=== PATIENT | male | born 1950 | race Caucasian/White ===

== ENCOUNTER 2016-07-10 14:47 | Emergency (ER) | payer SELFPAY ==
[~2016-07-10] VITALS: Ht 188 cm; Wt 86.2 kg
[~2016-07-10 14:47] MED LIST: ATENOLOL25 MG PO; CAR60 PO; DEXTROMETHORPHAN PO; ECO81 PO; FLO4 PO; HYDROCHLOROTH12.5 M2 PO; HYDROCHLOROTHIA25 MG; LAC PO; LEVAQUIN750 MG PO; MEDDP PO; NIC21 TD; PERCOCET1 TA2 PO; TEN50 PO; TENORMIN50 MG PO; ZESTRIL20 MG
[2016-07-10 15:49] LABS: BASOPHIL % 0.6 % (0-2); PLATELET COUNT 188 x10^3mcL (130-400); RED CELL DISTRIBUTION WIDTH 14.1 % (11.5-14.5)
[2016-07-10 16:02] LABS: CALCIUM 8.7 mg/dL (8.5-10.1); CARBON DIOXIDE 25.8 mmol/L (21-32); CHLORIDE SERUM 106 mmol/L (98-107); CREATININE SERUM 1.2 mg/dL (0.7-1.3); GFR1 > 60 mL/min; GLUCOSE SERUM 93 mg/dL (74-106); POTASSIUM SERUM 4.5 mmol/L (3.5-5.1); SODIUM SERUM 140 mmol/L (136-145)
[2016-07-10 16:07] LABS: ALBUMIN 3.5 g/dL (3.4-5.0); ALKALINE PHOSPHATASE 112 U/L (46-116); ALT/SGPT 37 U/L (16-63); AST/SGOT 34 U/L (15-37); BILIRUBIN TOTAL 0.4 mg/dL (0.20-1.00); TOTAL PROTEIN, SERUM 7.1 g/dL (6.4-8.2)
[2016-07-10 18:47] LABS: FREE T4 0.95 ng/dL (0.76-1.46); FREE THYROXINE INDEX 2.4 ug/dL (1.4-4.5); T4(THYROXINE) 6.6 ug/dL (4.7-13.3)
[2016-07-10 19:12] LABS: T3 TOTAL 0.77 ng/mL
[2016-07-10 19:51] LABS: AMYLASE 50 U/L (25-115); CHOLESTEROL 201 mg/dL (<200); CHOLESTEROL/HDL RATIO 2.1; HDL CHOLESTEROL 96 mg/dL (40-60); LIPASE 115 IU/L (73-393); TRIGLYCERIDES 85 mg/dL (<150)
[2016-07-10 21:14] VITALS: BP 108/70
== END 2016-07-10 21:14 | disposition left against medical advice (07) ==
LOC: ED 14:47
PROVIDERS: Family Medicine
DX: I48.91 Unspecified atrial fibrillation (principal); I10 Essential (primary) hypertension; N40.0 Benign prostatic hyperplasia without lower urinary tract symptoms; J44.9 Chronic obstructive pulmonary disease, unspecified
CPT/HCPCS: 80307; 83880; 84439; G0480; J2270; J2405; J3490

== ENCOUNTER 2016-07-15 12:31 | Inpatient (IN) | payer MEDICAID ==
[~2016-07-15] VITALS: Ht 188 cm; Wt 86.6 kg
[2016-07-15 13:30] LABS: BASOPHIL % 0.2 % (0-2); PLATELET COUNT 169 x10^3mcL (130-400)
[2016-07-15 13:34] LABS: RED CELL DISTRIBUTION WIDTH 14.8 % (11.5-14.5)
[2016-07-15 13:41] LABS: CALCIUM 8.6 mg/dL (8.5-10.1); CARBON DIOXIDE 29.3 mmol/L (21-32); CHLORIDE SERUM 106 mmol/L (98-107); CREATININE SERUM 1.1 mg/dL (0.7-1.3); GFR1 > 60 mL/min; GLUCOSE SERUM 170 mg/dL (74-106); POTASSIUM SERUM 4.1 mmol/L (3.5-5.1); SODIUM SERUM 142 mmol/L (136-145)
[2016-07-15 13:53] LABS: ALKALINE PHOSPHATASE 103 U/L (46-116); ALT/SGPT 36 U/L (16-63); AMYLASE 46 U/L (25-115); AST/SGOT 20 U/L (15-37); BILIRUBIN TOTAL 0.6 mg/dL (0.20-1.00); CHOLESTEROL 169 mg/dL (<200); LIPASE 116 IU/L (73-393); MAGNESIUM 1.8 mg/dL (1.8-2.4); T4(THYROXINE) 4.9 ug/dL (4.7-13.3); TOTAL PROTEIN, SERUM 6.6 g/dL (6.4-8.2)
[2016-07-15 13:54] LABS: ALBUMIN 3.3 g/dL (3.4-5.0); HDL CHOLESTEROL 93 mg/dL (40-60)
[2016-07-15 14:22] LABS: microscopic required? NO
[2016-07-15 14:32] LABS: UA SPECIFIC GRAVITY 1.025 (1.005-1.035); urine erythrocyte NEGATIVE (NEGATIVE)
[2016-07-15 14:36] LABS: AMPHETAMINE QUAL UR NONE DETECTED (NEG <=1000)
[2016-07-15] MEDS ORDERED: ATIVAN0.5 M1 (15:31)
[2016-07-15 16:16] VITALS: BP 133/98
[2016-07-15 16:30] LABS: CHOLESTEROL/HDL RATIO 1.9; FREE T4 0.95 ng/dL (0.76-1.46); FREE THYROXINE INDEX 2.3 ug/dL (1.4-4.5); T4(THYROXINE) 6.5 ug/dL (4.7-13.3)
[2016-07-15 16:34] VITALS: BP 133/98
[2016-07-15 17:06] LABS: T3 TOTAL 0.83 ng/mL
[2016-07-15 20:38] VITALS: BP 126/85
[2016-07-15 23:13] VITALS: BP 109/75
[2016-07-15 23:50] VITALS: BP 91/62
[2016-07-16] VITALS (9 sets, daily range): BP systolic 81–156; BP diastolic 48–97
[2016-07-16 06:17] LABS: BASOPHIL % 0.7 % (0-2); PLATELET COUNT 153 x10^3mcL (130-400)
[2016-07-16 06:37] LABS: CALCIUM 8.9 mg/dL (8.5-10.1); CHLORIDE SERUM 108 mmol/L (98-107); CREATININE SERUM 1.2 mg/dL (0.7-1.3); GFR1 > 60 mL/min; GLUCOSE SERUM 85 mg/dL (74-106); MAGNESIUM 2.1 mg/dL (1.8-2.4); PHOSPHOROUS 4.6 mg/dL (2.5-4.9); POTASSIUM SERUM 5.1 mmol/L (3.5-5.1); SODIUM SERUM 145 mmol/L (136-145)
[2016-07-16 06:39] LABS: RED CELL DISTRIBUTION WIDTH 15.1 % (11.5-14.5)
[2016-07-17 05:48] VITALS: BP 134/83
[2016-07-17] MEDS ORDERED: CAR60 PO (08:57)
[2016-07-17] MEDS ORDERED: ALDACTONE25 MG PO (08:59)
[2016-07-17] MEDS ORDERED: ZESTRIL5 MG PO (08:59)
[2016-07-17 09:29] VITALS: BP 118/72
[2016-07-17 09:33] VITALS: BP 118/72
== END 2016-07-17 10:20 | disposition home or self-care (01) | DRG 201 ==
LOC: ED 12:31 → DU 14:48
PROVIDERS: Emergency Medicine; ADMIT Family Medicine
DX: I48.91 Unspecified atrial fibrillation (principal); I50.43 Acute on chronic combined systolic (congestive) and diastolic (congestive) heart failure; E44.0 Moderate protein-calorie malnutrition; F10.10 Alcohol abuse, uncomplicated; I12.9 Hypertensive chronic kidney disease with stage 1 through stage 4 chronic kidney disease, or unspecified chronic kidney disease; N18.3 Chronic kidney disease, stage 3 (moderate); N40.0 Benign prostatic hyperplasia without lower urinary tract symptoms; F17.210 Nicotine dependence, cigarettes, uncomplicated; Z79.82 Long term (current) use of aspirin; Z68.25 Body mass index [BMI] 25.0-25.9, adult
CPT/HCPCS: 80307; 82962; 83880; 84439; 99406; G0480; J2270; J3490; J7030; J7620; Q0092

== ENCOUNTER 2018-05-22 09:16 | Observation (INO) | payer OTHER ==
[~2018-05-22] VITALS: Ht 188 cm; Wt 80.9 kg
[~2018-05-22 09:16] MED LIST changes: +ALDACTONE25 MG PO; +ATIVAN0.5 M1; +ZESTRIL5 MG PO
[2018-05-22 09:39] VITALS: Ht 188 cm; Wt 80.9 kg
[2018-05-22] MEDS ORDERED: CARDIZEM CD360 MG PO (10:28)
[2018-05-22] MEDS ORDERED: ALPRAZOLAM1 MG PO (10:29)
[2018-05-22] MEDS ORDERED: METOPROLOL SUCC50 M2 PO (10:29)
[2018-05-22] MEDS ORDERED: ESCITALOPRAM10 M1 PO (10:30)
[2018-05-22] MEDS ORDERED: NATURE'S BLEND F1 MG PO (10:30)
[2018-05-22] MEDS ORDERED: XARELTO10 M1 PO (10:30)
[2018-05-22] MEDS ORDERED: DIGOXIN0.25 M1 PO (10:31)
[2018-05-22] MEDS ORDERED: VENTOLIN H0.09 MG/A1 INH (10:31)
[2018-05-22 10:41] LABS: CALCIUM 8.6 mg/dL (8.5-10.1); CARBON DIOXIDE 29.9 mmol/L (21-32); CHLORIDE SERUM 104 mmol/L (98-107); GFR1 > 60 mL/min; GLUCOSE SERUM 84 mg/dL (74-106); SODIUM SERUM 136 mmol/L (136-145)
[2018-05-22 10:45] LABS: ALBUMIN 3.4 g/dL (3.4-5.0); ALKALINE PHOSPHATASE 122 U/L (46-116); ALT/SGPT 30 U/L (16-63); AST/SGOT 32 U/L (15-37); BILIRUBIN TOTAL 0.42 mg/dL (0.20-1.00); TOTAL PROTEIN, SERUM 6.8 g/dL (6.4-8.2)
[2018-05-22 10:49] LABS: POTASSIUM SERUM 5.1 mmol/L (3.5-5.1)
[2018-05-22 11:59] LABS: CALCIUM 8.5 mg/dL (8.5-10.1); MAGNESIUM 1.8 mg/dL (1.8-2.4); T4(THYROXINE) 6.7 ug/dL (4.7-13.3)
[2018-05-22 13:04] LABS: AMPHETAMINE QUAL UR NONE DETECTED (See below)
[2018-05-22 13:04] LABS: BASOPHIL % 0.5 % (0-2); PLATELET COUNT 190 x10^3mcL (130-400)
[2018-05-22 17:39] VITALS: BP 107/75
[2018-05-22 19:16] VITALS: BP 115/69
[2018-05-22 21:51] VITALS: BP 100/57
[2018-05-23 00:12] VITALS: BP 103/63
[2018-05-23 05:01] VITALS: BP 127/81
[2018-05-23 06:34] LABS: CALCIUM 8.5 mg/dL (8.5-10.1); CARBON DIOXIDE 27.7 mmol/L (21-32); CHLORIDE SERUM 105 mmol/L (98-107); GFR1 > 60 mL/min; GLUCOSE SERUM 90 mg/dL (74-106); POTASSIUM SERUM 4.3 mmol/L (3.5-5.1); SODIUM SERUM 140 mmol/L (136-145)
[2018-05-23 07:07] LABS: BASOPHIL % 0.9 % (0-2); PLATELET COUNT 185 x10^3mcL (130-400)
[2018-05-23 10:47] VITALS: BP 136/96
[2018-05-23 13:29] VITALS: BP 112/78
== END 2018-05-23 14:54 | disposition home or self-care (01) | DRG 309 ==
LOC: ED 09:16 → DU 13:03
PROVIDERS: Emergency Medicine; ADMIT Internal Medicine
DX: I48.91 Unspecified atrial fibrillation (principal); F14.20 Cocaine dependence, uncomplicated; R07.89 Other chest pain; I10 Essential (primary) hypertension; F12.10 Cannabis abuse, uncomplicated; F10.20 Alcohol dependence, uncomplicated; Y90.0 Blood alcohol level of less than 20 mg/100 ml; E78.5 Hyperlipidemia, unspecified; N40.0 Benign prostatic hyperplasia without lower urinary tract symptoms; M51.37 Other intervertebral disc degeneration, lumbosacral region; J44.9 Chronic obstructive pulmonary disease, unspecified; Z95.0 Presence of cardiac pacemaker; Z68.23 Body mass index [BMI] 23.0-23.9, adult; F17.210 Nicotine dependence, cigarettes, uncomplicated
CPT/HCPCS: 83880; 99406; G0378; G0480; Q0092

== ENCOUNTER 2018-06-28 04:33 | Inpatient (IN) | payer OTHER | END 2018-06-28 13:57 | disposition home or self-care (01) | LOC: ED 04:33 → DU 05:42 | DX: C61 Malignant neoplasm of prostate (principal); N39.0 Urinary tract infection, site not specified; J44.9 Chronic obstructive pulmonary disease, unspecified; R31.0 Gross hematuria; I10 Essential (primary) hypertension; I48.2 Chronic atrial fibrillation; F12.10 Cannabis abuse, uncomplicated; F14.10 Cocaine abuse, uncomplicated; F41.9 Anxiety disorder, unspecified; N40.0 Benign prostatic hyperplasia without lower urinary tract symptoms; Z79.01 Long term (current) use of anticoagulants; F17.210 Nicotine dependence, cigarettes, uncomplicated; Z95.0 Presence of cardiac pacemaker ==